=== PATIENT | female | born 1975 | race Hispanic/Latino ===

== ENCOUNTER 2020-10-09 10:09 | Outpatient (CLI) | payer MEDICAID ==
--- NOTE | 2020-10-09 11:35 | ULT ---
EXAM: Pelvic ultrasound HISTORY: Pelvic pain COMPARISON: None TECHNIQUE: Multiple grayscale and color Doppler images were obtained in a transvaginal pelvic ultraso und. FINDINGS: CERVIX: Multiple nabothian cysts are seen in the cervix measuring up to 8 mm in size. UTERUS: Normal in size without focal abnormality. ENDOMETRIAL STRIPE: 10 mm. No free fluid is seen in the pelvis. RIGHT OVARY: No focal mass. LEFT OVARY: No focal mass. IMPRESSION: Nabothian cysts
== END 2020-10-09 10:10 | disposition home or self-care (01) ==
LOC: BICULT 10:09
PROVIDERS: ATTEND Nurse Practitioner Women's Health
DX: R10.2 Pelvic and perineal pain (principal); N88.8 Other specified noninflammatory disorders of cervix uteri
CPT/HCPCS: 76856

== ENCOUNTER 2021-06-17 11:03 | Outpatient (CLI) | payer MEDICAID | END 2021-06-17 11:04 | disposition home or self-care (01) | LOC: BICMAMMO 11:03 | PROVIDERS: ATTEND Nurse Practitioner Family | DX: Z12.31 Encounter for screening mammogram for malignant neoplasm of breast (principal); N64.89 Other specified disorders of breast | CPT/HCPCS: 77067 ==

== ENCOUNTER 2021-07-02 09:30 | Outpatient (CLI) | payer MEDICAID | END 2021-07-02 09:31 | disposition home or self-care (01) | LOC: BICMAMMO 09:30 | PROVIDERS: ATTEND Nurse Practitioner Family | DX: R92.2 Inconclusive mammogram (principal) | CPT/HCPCS: G0279 ==